=== PATIENT | female | born 2005 | race African-American/Black ===

== ENCOUNTER 2024-08-12 04:13 | Emergency (ER) | payer MEDICAID ==
[~2024-08-12] VITALS: Ht 160 cm; Wt 60.0 kg
[2024-08-12 04:25] VITALS: O2SAT 98
[2024-08-12] MEDS ORDERED: ACETAMINOPHEN 325MG TABLET PO PRN (08:00)
[2024-08-12 09:04] LABS: BASOPHILS % 0.5 % (0.0-2.0); EOSINOPHILS % 0.4 % (0.0-5.0); HEMATOCRIT. 30.8 % (36.0-48.0); HEMOGLOBIN. 10.5 g/dL (12.0-16.0); LYMPHOCYTES % 26.9 % (20.0-50.0); MEAN CORPUSCULAR HEMOGLOBIN 30.8 pg (28.0-32.0); MEAN CORPUSCULAR VOLUME 90.6 fL (81.0-99.0); MEAN PLATELET VOLUME 8.5 fl (7.4-10.4); MONOCYTES % 6.5 % (2.0-8.0); NEUTROPHILS % 65.7 % (40.0-76.0); PLATELET 200 x1000/uL (130-400); RED CELL DISTRIBUTION WIDTH 13.1 % (11.6-14.6); WHITE BLOOD COUNT 7.6 x1000/uL (4.5-11.0)
[2024-08-12 09:10] LABS: CHLORIDE 105 mEq/L (98-107); POTASSIUM 3.7 mEq/L (3.5-5.1); SODIUM 135 mEq/L (136-145)
[2024-08-12 09:11] LABS: CARBON DIOXIDE 22 mEq/L (21-32)
[2024-08-12 09:12] LABS: CALCIUM 9.9 mg/dL (8.7-10.4)
[2024-08-12 09:16] LABS: CREATININE 0.6 mg/dL (0.6-1.0); GLUCOSE 83 mg/dL (70-105); UREA NITROGEN BLOOD 9 mg/dL (9-23)
[2024-08-12] MEDS ORDERED: TOPUD PO (09:30)
[2024-08-12 09:58] LABS: B-HCG QUANTITATIVE 46909 mIU/mL (<3)
[2024-08-12 11:30] VITALS: BP 104/58; PULSE 94; RESP 18; TEMP 37.05852; O2SAT 99
== END 2024-08-12 11:46 | disposition home or self-care (01) ==
LOC: ER 04:13
DX: O20.0 Threatened abortion (principal); Z3A.17 17 weeks gestation of pregnancy
CPT/HCPCS: 36415; 76805; 80048; 81025; 84702; 85025; 86850; 86900; 99284

== ENCOUNTER 2024-10-22 02:09 | Emergency (ER) | payer MEDICAID ==
[~2024-10-22] VITALS: Ht 165.1 cm; Wt 65.0 kg
[~2024-10-22 02:09] MED LIST: TOPUD PO
[2024-10-22 02:28] VITALS: O2SAT 98
[2024-10-22] MEDS ORDERED: ACETAMINOPHEN 325MG TABLET PO STA (03:13)
[2024-10-22 03:48] LABS: BASOPHILS % 0.4 % (0.0-2.0); EOSINOPHILS % 0.7 % (0.0-5.0); HEMATOCRIT. 32.3 % (36.0-48.0); HEMOGLOBIN. 11.2 g/dL (12.0-16.0); LYMPHOCYTES % 18.1 % (20.0-50.0); MEAN CORPUSCULAR HEMOGLOBIN 31.8 pg (28.0-32.0); MEAN CORPUSCULAR HGB CONC 34.8 g/dL (31.0-37.0); MEAN CORPUSCULAR VOLUME 91.3 fL (81.0-99.0); MEAN PLATELET VOLUME 8.4 fl (7.4-10.4); NEUTROPHILS % 73.8 % (40.0-76.0); PLATELET 224 x1000/uL (130-400); RED BLOOD CELL COUNT 3.54 mill/uL (4.2-5.4); RED CELL DISTRIBUTION WIDTH 12.6 % (11.6-14.6); WHITE BLOOD COUNT 9.8 x1000/uL (4.5-11.0)
[2024-10-22 03:52] LABS: CHLORIDE 105 mEq/L (98-107); POTASSIUM 3.7 mEq/L (3.5-5.1)
[2024-10-22 03:53] LABS: CARBON DIOXIDE 24 mEq/L (21-32); SODIUM 135 mEq/L (136-145)
[2024-10-22 03:54] LABS: CALCIUM 10.1 mg/dL (8.7-10.4)
[2024-10-22 03:58] LABS: CREATININE 0.6 mg/dL (0.6-1.0); GLUCOSE 78 mg/dL (70-105)
[2024-10-22 03:59] LABS: UREA NITROGEN BLOOD 12 mg/dL (9-23)
[2024-10-22 04:00] LABS: ALANINE AMINOTRANSFERASE 13 IU/L (10-49); ALBUMIN 4.2 g/dL (3.2-4.8); ASPARTATE AMINOTRANSFERASE 19 IU/L (<34)
[2024-10-22 04:01] LABS: BILIRUBIN TOTAL 0.5 mg/dL (0.1-1.0); PROTEIN TOTAL 7.3 g/dL (6.0-8.3)
[2024-10-22 05:07] LABS: CLARITY URINE CLOUDY (CLEAR); COLOR URINE YELLOW (YELLOW); GLUCOSE URINE NEGATIVE (NEGATIVE); KETONES URINE TRACE (NEGATIVE); LEUKOCYTE ESTERASE URINE 1+ (NEGATIVE); NITRITE URINE NEGATIVE (NEGATIVE); OCCULT BLOOD URINE NEGATIVE (NEGATIVE); PROTEIN URINE TRACE (NEGATIVE); SPECIFIC GRAVITY URINE 1.025 (1.005-1.030)
[2024-10-22] MEDS ORDERED: TOPUD MT (05:07)
[2024-10-22 05:15] LABS: B-HCG QUANTITATIVE 45073 mIU/mL (<3)
[2024-10-22] MEDS ORDERED: CEPH500C2 MT (05:18)
[2024-10-22 05:27] LABS: BACTERIA URINE 2+; SQUAMOUS EPITHELIAL CELL URINE 1+ /lpf (RARE/1+)
[2024-10-22 05:41] VITALS: BP 110/70; PULSE 88; RESP 16; TEMP 37.05852; O2SAT 100
[2024-10-22] MEDS: CEFTRIAXONE SODIUM 500MG VIAL IM ONE (05:42)
== END 2024-10-22 05:43 | disposition home or self-care (01) ==
LOC: ER 02:28
DX: O23.42 Unspecified infection of urinary tract in pregnancy, second trimester (principal); N39.0 Urinary tract infection, site not specified; Z3A.27 27 weeks gestation of pregnancy
CPT/HCPCS: 99285; 76805; 80053; 81003; 84702; 83690; 85025; 36415; 96372; J0696